=== PATIENT | male | born 1960 | race Two or more races ===

== ENCOUNTER 2020-12-19 15:41 | Inpatient (IN) | payer MEDICAID ==
[~2020-12-19] VITALS: Ht 172.7 cm; Wt 136.0 kg
[2020-12-19 16:35] LABS: Basophils # (auto) 0.1 10 ^3/uL (0-0.2); Basophils % (auto) 1.1 % (0.0-2.0); Eosinophils # (auto) 0.2 10 ^3/uL (0-0.8); Eosinophils % (auto) 2.5 % (0.0-7.0); Hematocrit 44.2 % (41.0-53.0); Hemoglobin 15.1 g/dL (13.5-17.5); Lymphocytes # (auto) 2.2 10 ^3/uL (0.4-5.4); Lymphocytes % (auto) 23.4 % (10.0-50.0); Mean Corpuscular Hgb Conc. 34.1 g/dL (32.0-36.0); Mean Corpuscular Volume 85.1 fL (80.0-100.0); Monocytes # (auto) 0.8 10 ^3/uL (0-1.3); Monocytes % (auto) 8.3 % (0.0-12.0); Neutrophils % (auto) 64.7 % (37.0-80.0); Red Blood Cells 5.19 10^6/uL (4.5-5.90); White Blood Cell 9.3 10^3/uL (4.4-10.8)
[2020-12-19 18:03] LABS: Chloride 104 mmol/L (98-107); Potassium 4.1 mmol/L (3.5-5.1); Sodium 135 mmol/L (136-145)
[2020-12-19 18:25] LABS: Alanine Aminotransferase 46 U/L (16-61); Albumin 3.7 g/dL (3.4-5.0); Alkaline Phosphatase 73 U/L (45-117); Anion Gap 4 (5-15); Aspartate Aminotransferase 20 U/L (15-37); BUN/Creatinine Ratio 18.3; Bilirubin, Total 0.2 mg/dL (0.2-1.0); Blood Urea Nitrogen 21 mg/dL (7-18); Calcium 8.7 mg/dL (8.5-10.1); Carbon Dioxide 27 mmol/L (21-32); GFR African American 84 mL/min; GFR Non-African American 69 mL/min; Glucose 99 mg/dL (74-106); Total Protein 7.6 g/dL (6.4-8.2)
[2020-12-20] VITALS (9 sets, daily range): BP systolic 127–147; BP diastolic 72–98
[2020-12-20] MEDS ORDERED: ONDANSETRON HCL 4 MG/2 ML VIAL IV PRN (01:00)
[2020-12-20] MEDS ORDERED: NITROGLYCERIN 0.4 MG SL TAB SL PRN (01:00)
[2020-12-20] MEDS ORDERED: TEMAZEPAM 15 MG CAP PO PRN (01:00)
[2020-12-20] MEDS ORDERED: AZITHROMYCIN 500MG/ 250ML 250 ML IV ONE (01:00)
[2020-12-20] MEDS ORDERED: ACETAMINOPHEN 325 MG TAB PO PRN (01:00)
[2020-12-20] MEDS ORDERED: MORPHINE SULFATE INJECTION 2 MG/ML SYRG IV PRN (01:00)
[2020-12-20] MEDS ORDERED: AZITHROMYCIN 500MG/ 250ML 250 ML IV SCH (10:00)
[2020-12-20] MEDS ORDERED: CARVEDILOL 12.5 MG TAB PO SCH (10:00)
[2020-12-20] MEDS ORDERED: FUROSEMIDE 40 MG TAB PO SCH (10:00)
[2020-12-20] MEDS ORDERED: LOSARTAN POTASSIUM 50 MG TAB PO SCH (10:00)
[2020-12-20] MEDS ORDERED: ASPirin 81 mg TAB PO SCH (10:00)
[2020-12-20] MEDS ORDERED: PANTOPRAZOLE 40 MG TAB PO SCH (10:00)
[2020-12-20] MEDS ORDERED: ENOXAPARIN SOD 40 MG/0.4 ML SYRINGE SC SCH (10:00)
[2020-12-20] MEDS ORDERED: ANGIOMAX 250 MG VIAL IV ONE (10:08)
[2020-12-20] MEDS ORDERED: HEPARIN SODIUM (PORCINE) 5000 UNITS/ML 1ML VIAL ONE (10:08)
[2020-12-20] MEDS ORDERED: VERAPAMIL 2.5MG/ML INJ 2ML VIAL IV ONE (10:09)
[2020-12-20] MEDS ORDERED: fentaNYL CITRATE 100 MCG/2 ML VL ONE (10:09)
[2020-12-20] MEDS ORDERED: SODIUM CHL 0.9% 0 ML ONE (10:10)
[2020-12-20] MEDS ORDERED: MIDAZOLAM HCL 2MG/2ML 2ml VIAL (1mg/ml) ONE (10:10)
[2020-12-20] MEDS ORDERED: LIDOCAINE 2%HCL (LOCAL ANESTH.) INJ 20ML MDV ONE (10:12)
[2020-12-20] MEDS ORDERED: IODIXANOL 320MG/ML 100ML BTL IV ONE (10:12)
[2020-12-20 10:18] LABS: INR 1.03 (0.9-1.15); Partial Thromboplastin Time 28.3 sec (23.6-33.0)
[2020-12-20] MEDS ORDERED: NITROGLYCERIN 5MG/ML 10ML VIAL IV ONE (10:53)
[2020-12-20] MEDS ORDERED: SODIUM CHL 0.9% 50 ML ONE (10:53)
[2020-12-20] MEDS ORDERED: ATORVASTATIN 20 MG TAB PO SCH (22:00)
== END 2020-12-20 15:18 | disposition home or self-care (01) | DRG 191 ==
LOC: ER 15:41 → EDBD 15:41 → TELE 12-20 01:00
PROVIDERS: ADMIT Nurse Practitioner; ATTEND Hospitalist
PROC: 4A023N7 Measurement of Cardiac Sampling and Pressure, Left Heart, Percutaneous Approach (ICD-10-PCS; principal; 2020-12-20)
PROC: B211YZZ Fluoroscopy of Multiple Coronary Arteries using Other Contrast (ICD-10-PCS; 2020-12-20)
PROC: B215YZZ Fluoroscopy of Left Heart using Other Contrast (ICD-10-PCS; 2020-12-20)
DX: I25.110 Atherosclerotic heart disease of native coronary artery with unstable angina pectoris (principal); I11.0 Hypertensive heart disease with heart failure; I50.9 Heart failure, unspecified; E66.01 Morbid (severe) obesity due to excess calories; Z68.42 Body mass index [BMI] 45.0-49.9, adult; R42 Dizziness and giddiness; Z20.822 Contact with and (suspected) exposure to COVID-19
CPT/HCPCS: 36415; 71045; 80053; 83880; 84484; 85025; 85610; 85730; 86850; 86900; 86901; 87081; 87426; 93005; 93458; 96365; 96366; 99152; G0378; J2250; J3490; Q9967

== ENCOUNTER → 2021-02-28 | Day surgery (SDC) | payer MEDICAID ==
[~2021-02-28] VITALS: Ht 172.7 cm; Wt 145.1 kg
[~2021-02-28] MED LIST: ALBUAER3 IN; ASPI1TAB20 PO; ATOR20TA PO; BUPIVACAINE HCL 50 ML ONE; CARV12.544 PO; CETI10TA2 PO; DexAMETHasone SOD PHOS 10MG/1ML VIAL INJ ONE; FURO40TA4 PO; HYDROmorphone HCL 2 MG/ML VL IV PRN; IBUP600T27 PO; LOSA100T22 PO; METH500T22 PO; METOCLOPRAMIDE HCL 5MG/ml INJ 2ml VIAL IV PRN; MIDAZOLAM HCL 2MG/2ML 2ml VIAL (1mg/ml) ONE; MORPHINE SULFATE 4 MG/ML SYR/VIAL IV PRN; MULT1CHW78 PO; NAP500T PO; ONDANSETRON HCL 4 MG/2 ML VIAL ONE; PROPOFOL 10 MG/ML 20 ML IV ONE; ROCURONIUM 10MG/ML 10ML VIAL IV ONE; TRAM-297 PO; ceFAZolin 1GM/50ML 150 ML IV ONE; fentaNYL CITRATE 100 MCG/2 ML VL ONE
[2021-02-28 10:45] VITALS: BP 120/54
== END | disposition home or self-care (01) ==
LOC: SUR 07:39
PROVIDERS: ATTEND Orthopaedic Surgery Sports Medicine
DX: S83.281A Other tear of lateral meniscus, current injury, right knee, initial encounter (principal); M94.261 Chondromalacia, right knee; I13.0 Hypertensive heart and chronic kidney disease with heart failure and stage 1 through stage 4 chronic kidney disease, or unspecified chronic kidney disease; I50.9 Heart failure, unspecified; N18.2 Chronic kidney disease, stage 2 (mild); E78.5 Hyperlipidemia, unspecified; G89.29 Other chronic pain; G47.33 Obstructive sleep apnea (adult) (pediatric); E66.01 Morbid (severe) obesity due to excess calories; X58.XXXA Exposure to other specified factors, initial encounter; Y92.89 Other specified places as the place of occurrence of the external cause; Y93.89 Activity, other specified; Y99.8 Other external cause status; Z82.49 Family history of ischemic heart disease and other diseases of the circulatory system; Z83.3 Family history of diabetes mellitus; Z68.42 Body mass index [BMI] 45.0-49.9, adult; Z98.890 Other specified postprocedural states; Z79.899 Other long term (current) drug therapy; Z20.822 Contact with and (suspected) exposure to COVID-19
CPT/HCPCS: 29879; 29881; C1713; J0690; J1100; J2250; J2405; J2704; J2765; J3010; J3490; U0003